=== PATIENT | female | born 1980 | race Caucasian/White ===

== ENCOUNTER → 2017-07-20 | Outpatient (CLI) | payer BC ==
[2017-07-20 09:27] LABS: ALT/SGPT 12 U/L (12-78); AST/SGOT 12 U/L (15-37); BLOOD UREA NITROGEN 10 mg/dl (7-18); BUN/CREATININE RATIO 9.5 (10-20); CALCIUM 9.2 mg/dl (8.5-10.1); CARBON DIOXIDE 25 mmol/L (21-32); CHLORIDE 105 mmol/L (98-107); CHOLESTEROL 206 mg/dl (0-200); GLUCOSE 90 mg/dl (70-99); POTASSIUM 3.5 mmol/L (3.5-5.1); SODIUM 140 mmol/L (136-145); TRIGLYCERIDES 173 mg/dl (0-150); VERY LOW DENSITY LIPOPROT CALC 35 mg/dl
[2017-07-20 09:37] LABS: ALB/GLOB RATIO 1.1 (0.9-2); ALKALINE PHOSPHATASE 71 U/L (45-117); CHOLESTEROL/HDL RATIO 5.4; HDL CHOLESTEROL 38 mg/dl; LDL CHOLESTEROL CALCULATED 133 mg/dl
== END | disposition home or self-care (01) ==
LOC: C.LAB 08:37
PROVIDERS: ATTEND Family Medicine
DX: Z00.00 Encounter for general adult medical examination without abnormal findings (principal); E78.1 Pure hyperglyceridemia; F31.9 Bipolar disorder, unspecified; F41.8 Other specified anxiety disorders; R41.840 Attention and concentration deficit

== ENCOUNTER → 2017-07-31 | Outpatient (CLI) | payer BC ==
[~2017-07-31] MED LIST: OPTIRAY 320 IV PRN
--- NOTE | 2017-07-31 08:37 | DIAGNOSTIC IMAGING REPORT ---
ABD/PELVIS IV CONTRAST ONLY CLINICAL HISTORY: 37 years-old Female presenting with diffuse abdominal pain, constipation, umbilical hernia. TECHNIQUE: Multidetector CT of the abdomen and pelvis was performed after the administration of intravenous contrast. IV contrast: 119 mL of Optiray 320. A dose lowering technique was used consistent with the principles of ALARA (as low as reasonably achievable). COMPARISON: None. CT DOSE (mGy.cm): The estimated cumulative dose is 500.58 mGy.cm. FINDINGS: Spoon Maker topogram: Cholecystectomy clips noted. Lung bases: Dependent changes most pronounced at the right lung base, likely atelectasis or scarring. Normal heart size. No pericardial or pleural effusion. Liver: Normal morphology. No liver lesion. Patent hepatic vasculature. Biliary: Mild central intrahepatic biliary ductal prominence likely a reservoir effect in the post cholecystectomy state. Common duct nondilated. Gallbladder surgically absent. Pancreas: Normal. Spleen: Normal. Adrenal glands: Normal. Kidneys and ureters: Normal. No hydronephrosis. Bladder: Incompletely evaluated secondary to underdistention. Pelvic organs: Uterus and ovaries normal. A tampon is present. Bowel: Few diverticula at the junction of the descending and sigmoid colon. Moderate stool burden in the right colon. Lipomatous hypertrophy of the ileocecal valve. Normal appendix. No bowel obstruction. Mild apparent wall thickening of the gastric antrum. No perigastric inflammatory change. Peritoneal cavity: No free fluid or intraperitoneal gas. Lymph nodes: Few prominent upper abdominal lymph nodes, the largest at the jahaira hepatis measuring 8 mm in short axis. No pathologically enlarged lymph nodes in abdomen or pelvis. Vasculature: Atherosclerosis of the normal caliber abdominal aorta. IVC patent. Abdominal wall: Small fat-containing umbilical hernia. Musculoskeletal: Bone islands noted in the pelvis and left femoral head. IMPRESSION: 1. Mild apparent wall thickening of the gastric antrum. Correlate clinically to exclude gastritis although this may be due to underdistention. 2. Moderate stool burden in the right colon. No bowel obstruction. Electronically signed by: Edward Dudley M.D. 07/31/2017 8:36 AM Dictated Date/Time: 07/31/2017 8:29 AM
== END | disposition home or self-care (01) ==
LOC: C.CTS 08:08
PROVIDERS: ATTEND Family Medicine
DX: K42.9 Umbilical hernia without obstruction or gangrene (principal); R10.9 Unspecified abdominal pain; K59.00 Constipation, unspecified

== ENCOUNTER → 2017-11-28 | Outpatient (CLI) | payer BC | END | disposition home or self-care (01) | LOC: C.LABSPEC 10:05 | PROVIDERS: ATTEND Family Medicine | DX: J02.9 Acute pharyngitis, unspecified (principal) ==